=== PATIENT | male | born 1970 | race Caucasian/White ===

== ENCOUNTER → 2018-06-10 | Outpatient (CLI) | payer OTHER ==
[~2018-06-10] MED LIST: ALBU90OI61 INH; CODGUAEL PO; METF500 PO; PROM25 PO; RANI150 PO; Zithromax250 MG PO
== END ==
LOC: LAB 18:35 → LAB SHORT 18:35
DX: Z48.817 Encounter for surgical aftercare following surgery on the skin and subcutaneous tissue (principal); L08.9 Local infection of the skin and subcutaneous tissue, unspecified
CPT/HCPCS: 87070; 87077; 87186; 87205